=== PATIENT | female | born 1950 | race Caucasian/White ===

== ENCOUNTER 2018-01-03 14:43 | Outpatient (CLI) | payer MEDICARE, OTHER | END 2018-01-03 14:44 | disposition critical access hospital (66) | LOC: EMS 14:43 | PROVIDERS: ATTEND Surgery | DX: R09.89 Other specified symptoms and signs involving the circulatory and respiratory systems (principal); R13.10 Dysphagia, unspecified | CPT/HCPCS: A0425; A0429 ==

== ENCOUNTER 2018-01-03 15:21 | Emergency (ER) | payer MEDICARE, OTHER ==
[2018-01-03 15:31] VITALS: BP 114/87
--- NOTE | 2018-01-03 15:54 | ED Physician Documentation ---
History of Present Illness - Stated complaint Stated Complaint: CHOKED - Chief complaint Chief Complaint: General - Additonal information Additional information: hx [place] 67 [place] at [facility] has a hx of some type of GERD or HH - states she had an MRI and there is some sort of blockage sounds like at the GE junction so periodically when she tried to eat the food/fluid gets stuck and will not go down so she vomits this happened today at a restaurant she was eating soup she did not feel she had a meat or food bolus she was vomiting and having diff wirh secretions no SOA does not feel she aspirated 011 was called and suction her out now she feels better she does not want any work up done in the ER she is feeling better, this is not new, she has doctors and prior wup at [facility] and would like to fup with them Review of Systems Constitutional: denies: Fever, Chills Cardiac: denies: Chest pain / pressure Respiratory: denies: Dyspnea GI: reports: Vomiting. denies: Abdominal Pain PD PAST MEDICAL HISTORY - Past Medical History Cardiovascular: Hypertension, High cholesterol Endocrine/Autoimmune: Other Other Past Medical History: parathyroid. - Present Medications Home Medications: Ambulatory Orders Medication Instructions Recorded Confirmed Home Medications Unobtainable 01/03/18 01/03/18 [HOME MEDICATIONS UNOBTAINABLE] - Allergies Allergies/Adverse Reactions: Allergies Allergy/AdvReac Type Severity Reaction Status Date / Time No Known Drug Allergies Allergy Verified 01/03/18 15:31 - Social History Does the pt smoke?: No Smoking Status: Never smoker PD ED PE NORMAL - Vitals Vital signs reviewed: Yes - HEENT HEENT: Other (no oral swelling no blood) - Cardiac Cardiac: RRR - Respiratory Respiratory: No respiratory distress, Clear bilaterally (no wheeze stridor or ronchi) Results - Vitals Vitals: Vital Signs - 24 hr 01/03/18 15:27 Temperature 36.1 C L Heart Rate 89 Respiratory 18 Rate Blood Pressure 114/87 H O2 Saturation 97 Oxygen O2 Source Room air PD MEDICAL DECISION MAKING - ED course ED course: pt is able to swallow fluids no resp distress nl VS she she declines any work up here as she has already been extensively worked up at [facility] and this is not a new problem she feels safe to go home with her for now Departure - Departure Clinical Impression: Choking episode Condition: Good Comments: Please follow up with your doctors at [facility] for further evaluation and management If you are worse in any way while visiting the [place] you can always come back to the ER I (Dr Pryor) will be working the next 4 days from 7AM till 6 PM and you can call me at
== END 2018-01-03 16:16 | disposition home or self-care (01) ==
LOC: ED 15:21
DX: T17.928A Food in respiratory tract, part unspecified causing other injury, initial encounter (principal); I10 Essential (primary) hypertension
CPT/HCPCS: 99283